=== PATIENT | male | born 1960 | race Caucasian/White ===

== ENCOUNTER → 2016-03-16 | Outpatient (CLI) | payer MEDICARE ==
[~2016-03-16] MED LIST: ASPIRIN 81MG TA81 MG PO; ASPIRIN ADULT L81 M2 PO; AUGMENTIN1 TA2 PO; DICLOFENAC 50MG50 MG PO; FUROSEMIDE 20MG20 MG PO; GABAPENTIN300 MG PO; GLYBURIDE2.5 MG PO; GLYXAMBI1 TAB PO; HUMALOG MIX 75/10 ML SC; HUMULIN R100 UNITS/ SC; KEFLEX 500MG.500 MG PO; LANTUS INS100 UNITS/ SC; LISINOPRIL 5MG T5 MG NG; MELOXICAM7.5 MG PO; METFORMIN1000 MG PO; METFORMIN500 MG PO; NOVOLIN 70/30 710 ML SC; NOVOLOG MI100 UNITS/ SC; PRAVACHOL 40MG40 MG PO; PRAVASTATIN 20M20 MG PO; TRESIBA FL100 UNIT/1 SQ; VITAMIN D1000 IU PO; VITAMIN D50000 IU PO
--- NOTE | 2016-03-16 19:42 | RADIOLOGY REPORT PS360 ---
FOOT-RT-3 VIEWS HISTORY: CELLULITIS OF RT FOOT ORDERING PHYSICIAN: ELLEN PATEL APRN PATIENT AGE: 56 years FINDINGS: No fracture or dislocation. No lytic or blastic change. There is normal mineralization.. There are small cortical defects involving the medial aspect of the first metatarsophalangeal joint. While this could be related to subarticular cystic change, one cannot exclude the possibility of gout. This was not present on 06/23/2010. No other significant anomalies evident. IMPRESSION: Small punched out cortical defects on the medial aspect of the first metatarsophalangeal joint which could be due to prior gout. Please correlate clinically. Otherwise negative
== END ==
LOC: RAD 11:02
DX: L03.115 Cellulitis of right lower limb (principal)

== ENCOUNTER → 2016-03-18 | Outpatient (CLI) | payer MEDICARE ==
--- NOTE | 2016-03-18 09:51 | RADIOLOGY REPORT PS360 ---
ORBIT HISTORY: History of metallic foreign body in the eyes. 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 IMPRESSION: No radio opaque orbital foreign body identified
--- NOTE | 2016-03-22 09:58 | RADIOLOGY REPORT PS360 ---
MRI-LOW EXT OTH THN JNT W/O-RT HISTORY: Pain and swelling in the foot and great toe CELLULITIS OF RIGHT FOOT ORDERING PHYSICIAN: ELLEN PATEL APRN PATIENT AGE: 56 years COMPARISON: Radiograph 2 03/16/2016 TECHNIQUE: Standard multiplanar multiecho sequences are performed without contrast. FINDINGS: There is no convincing evidence of bone marrow edema that would indicate acute osteomyelitis. No obvious fracture or bony erosive change. Minor osteoarthritic changes involve the first metatarsophalangeal junction. There is mild diffuse subcutaneous edema along the dorsal aspect of the foot which may be related to cellulitis. Increased T2 signal present along the nailbed involving the great toe and could represent fluid or blood. IMPRESSION: 1. No convincing evidence of osteomyelitis. 2. Cellulitis along the dorsal aspect of the foot. 3. Increased T2 signal involving the nailbed of the great toe consistent with fluid and/or blood
== END ==
LOC: RAD 09:16
DX: L03.115 Cellulitis of right lower limb (principal); H05.53 Retained (old) foreign body following penetrating wound of bilateral orbits

== ENCOUNTER → 2016-04-20 | Outpatient (CLI) | payer MEDICARE ==
[2016-04-20 08:47] LABS: BUN 45 mg/dL (7-18); GFR (ESTIMATED) 28 ML/MIN (>60)
== END ==
LOC: LAB 07:21
PROVIDERS: Family Medicine
DX: E03.9 Hypothyroidism, unspecified (principal); E11.9 Type 2 diabetes mellitus without complications; I10 Essential (primary) hypertension

== ENCOUNTER 2016-05-21 19:18 | Emergency (ER) | payer MEDICARE ==
[~2016-05-21] VITALS: Ht 180.3 cm; Wt 104.3 kg
[~2016-05-21 19:18] MED LIST changes: -GLYXAMBI1 TAB PO; -TRESIBA FL100 UNIT/1 SQ
[2016-05-21] MEDS ORDERED: TRESIBA FL100 UNIT/1 SQ (19:57)
--- NOTE | 2016-05-21 20:05 | Urgent Treatment Center Report ---
History of Present Issue Date/Time Seen by Provider 05/21/162000 Visit Reason Pt arrived:Walked Presenting Problem:PT STATES TRIPPING ON TREE ROOT MONDAY AND FALLING. STATES INJURY TO LEFT RIBS FROM FALL Location if Accident:Home Onset of symptoms date/time:05/16/16/ or onset unknown for:MEDICAL HX UNKNOWN Have you (or family members/close friends) recently traveled outside the [place]? N If Yes, where/when: Have you had exposure to infectious disease within the past month? TB? Other? Specify: Source patient Exam Limitations no limitations Comment 56-year-old male presents to [facility] with complaints of LEFT side pain. She states on Monday tripped over a tree root and fell flat of his face. He woke up on Monday with the pain in the LEFT rib area. Patient states he has noted his abdomen feels bloated patient states area on rib is tender to palpate. ALLERGIES Coded Allergies: loratadine (From CLARITIN-D) (05/21/16) pseudoephedrine (From CLARITIN-D) (05/21/16) Home Medications Reported Medications METFORMIN HCL (Metformin) 1,000 MG PO BID PRAVASTATIN SODIUM (Pravastatin Sodium) 40 MG PO QHS Gabapentin (Gabapentin 300MG) 800 MG PO TID Furosemide (Furosemide) 40 MG PO DAILY LISINOPRIL (Lisinopril) 5 MG NG DAILY Aspirin 81 MG PO BID Insulin Degludec (Tresiba Flextouch U-100) 60 UNIT SQ NIGHTLY ERGOCALCIFEROL (VITAMIN D2) (Vitamin D2) 50,000 IUNITS PO TWICEWEEKLY #8 History Medical History General CAD? No Angina: Yes [place]: No Hypertension? Yes Hyperlipidemia? Yes CHF? No DVT? No PE? No COPD? No Asthma? No Anemia? No GERD? No Gastric ulcers? No GI Bleed? No Hernia? Yes Thyroid Problems? No Hypothyroidism? No CVA? No Seizures? No Diabetes? Yes Insulin Dependent: Yes Insulin Pump: No Home FSBS? No Renal Insuffiency? No UTI? No Stones? No GB Disease: No Nephritic Syndrome? No Asplenia? No Hepatitis? No Sickle Cell Disease? No Arthritis? No Migraines? No Cataracts? No Glaucoma? No MRSA? No HIV? No TB? No Anxiety? No Depression? No Cancer? No Immunization HX DT/Tetanus 5-10 Years Ago Flu Refused Pneumonia Refuses Surgical Hx Previous Surgery?Y Hernia Repair LASER EYE Family History Family HX Diabetes Yes CAD Yes Hypertension Yes Hyperlipidemia No Cancer No TB No Social History Smoking Hx Smoker: Never Smoker Tobacco: No Alcohol Alcohol: No Review of Systems All Other Systems Reviewed and Negative Respiratory see HPI, denies orthopnea, denies shortness of breath Cardiovascular denies chest pain Gastrointestinal see HPI Genitourinary denies: no symptoms reported. Physical Exam Vital Signs Vital Signs Date Time Temp Pulse Resp B/P Pulse O2 O2 Flow FiO2 Ox Delivery Rate 05/21 1928 99.3 90 20 185/80 100 - WBC >12,000 or <4,000 or 10% bands? 2 or more SIRS Criteria Met? B/P:185/80 MAP:115 Creatinine >2.0? UA output<0.5ml/kg/hr for 2 hrs? Platelet count >100,000? Lactate >2.0mmol/1? INR >1.2 or PTT > than 60 sec? Evidence of Organ Dysfunction? Provider documented clinical suspician of infection? Sepsis Criteria Count: 2 Sepsis Risk: General Appearance normal appearance, no apparent distress Eye Exam - bilateral eye normal exam, bilateral eye PERRL, bilateral eye EOMI Respiratory Status Yes: trachea midline, chest symmetrical, non tender chest. No: respiratory distress. Lung Sounds bilateral: normal breath sounds, lungs clear. Cardiovascular normal exam, regular rate/rhythm, no peripheral edema Peripheral Pulses Pulses normal Yes Gastrointestinal normal bowel sounds, soft, tenderness (luq) Neurologic alert, normal exam, oriented x 3 Medical Decision Making LABS/Meds/Orders Pt receiving controlled substance in ED? No Results/Orders Laboratory Tests 05/21/162008: Ammonia Cancelled 05/21/16 2009: Sodium 139, Potassium 5.6 H, Chloride 103, Carbon Dioxide 26, BUN 48 H, Creatinine 2.8 H, Estimated Creat Clear 43 L, Estimated GFR (MDRD) 23, Glucose 287 H, Calcium 9.1, Total Bilirubin 0.3, AST 14 L, ALT 24, Alkaline Phosphatase 115, Total Protein 8.0, Albumin 3.4, Globulin 4.6 H, Albumin/ Globulin Ratio 0.7 L, Amylase 65, Lipase 563 H, WBC 8.1, RBC 3.83 L, Hgb 10.4 L, Hct 32.6 L, MCV 85.0, RDW 13.3, Plt Count 203, MPV 7.8, Gran % 72.9, Gran # 5.9, Lymphocytes % 19.4, Monocytes % 4.3, Eosinophils % 3.2, Basophils % 0.3, Lymphocytes # 1.6, Monocytes # 0.4, Eosinophils # 0.3, Basophils # 0.0, PUBS MCHC 31.8, MCH 27.1 Orders Procedure Date/time Status LIPASE 05/22 1999 Complete CBC WITH AUTO DIFF 05/22 1999 Complete CHEM 12 PROFILE 05/22 1999 Complete AMYLASE 05/22 1999 Complete [id number] VIEWS 05/21 1933 Active XRAY/CT/US XRAY/CT/US XRAY chest XR interpretation by reviewed by me (michael) Xray Results no fracture seen Departure Departure Time of Disposition 2054 Disposition Still a Patient Clinical Impression Primary Impression: Ascites Qualifiers: Ascites type: other type Qualified Code: R18.8 - Other ascites Condition STABLE Referrals Shaw AGUILERA,Ryan (Family) Patient Instructions Ascites Additional Instructions After labs discuss patient with Dr. rodriguez transferred patient to the ER for further evaluation at 2058
[2016-05-21 20:26] LABS: HEMOGLOBIN 10.4 g/dL (14.1-18.0); LYMPH # 1.6 K/mm3 (0.7-4.5); LYMPH % 19.4 % (10-50)
[2016-05-21] MEDS ORDERED: GLYXAMBI1 TAB PO (21:09)
--- NOTE | 2016-05-21 22:01 | Emergency Room Report ---
History of Present Illness Time Seen by [id number] Presenting Problem in Triage Pt arrived:Walked Presenting Problem:PT RPTS HE WAS SENT TO THE ER FROM [facility]. PT WENT TO [facility] C/O LEFT SIDED RIB PAIN FROM A FALL ON MONDAY. PT DENIES LOC FROM FALL. PT RPTS HE WAS WALKING AND TRIPPED OVER A STUMP AND FELL. PT RPTS [facility] TOLD HIM THAT HE MIGHT BE IN KIDNEY OR LIVER FAILURE AND NEEDS FURTHER TESTING. Onset of symptoms date/time:05/16/16/ or onset unknown for:MEDICAL HX UNKNOWN Treatment Prior to Arrival: DAILY [facility] [employer] [employer] Provided by:SELF Sepsis Risk Assessment: Temp: 98.8 B/P: 159/96 MAP: 117 Pulse: 88 Resp: 18 Recent fever? N Clinical Suspician of Infection? N Mental Status: 1 - Regular (Normal Baseline) Sepsis Risk:Low Sepsis Risk Have you (or family members/close friends) recently traveled outside the [place]? N If Yes, where/when: Have you had exposure to infectious disease within the past month? N TB? Other? Specify: Comment The patient states that on Monday 6 days ago he fell forward landing on his face. He says that on Monday he started developing some soreness in his LEFT anterior ribs and thought he might have broken a rib. He says that today his abdomen feels swollen and distended and therefore he came to the emergency room. He denies vomiting. No trouble breathing except pain in his LEFT ribs when he takes a breath. He denies other injuries. He was seen in urgent treatment center by Jayesh Hanna, and had a laboratory workup. It was discovered that his creatinine was above baseline and he hasn't elevated lipase. She felt that he might have ascites as well. She therefore sends him to the emergency department for further evaluation. He is a nondrinker. No history of pancreatitis. ALLERGIES Coded Allergies: loratadine (From CLARITIN-D) (05/21/16) pseudoephedrine (From CLARITIN-D) (05/21/16) Home Medications Reported Medications METFORMIN HCL (Metformin) 1,000 MG PO BID PRAVASTATIN SODIUM (Pravastatin Sodium) 40 MG PO QHS Gabapentin (Gabapentin 300MG) 800 MG PO TID Furosemide (Furosemide) 40 MG PO DAILY LISINOPRIL (Lisinopril) 5 MG NG DAILY Aspirin 81 MG PO BID Empagliflozin/Linagliptin (Glyxambi 25 MG-5 MG Tablet) 1 TAB PO DAILY Insulin Degludec (Tresiba Flextouch U-100) 60 UNIT SQ NIGHTLY ERGOCALCIFEROL (VITAMIN D2) (Vitamin D2) 50,000 IUNITS PO TWICEWEEKLY #8 History Medical History General CAD? No Angina: Yes [place]: No Hypertension? Yes Hyperlipidemia? Yes CHF? No DVT? Yes PE? No COPD? No Asthma? No Anemia? No GERD? No Gastric ulcers? No GI Bleed? No Hernia? Yes Thyroid Problems? Yes Hypothyroidism? Yes CVA? No Seizures? No Diabetes? Yes Insulin Dependent: Yes Insulin Pump: No Home FSBS? Yes Renal Insuffiency? No End Stage Renal Disease? No UTI? No Stones? No BPH? No GB Disease: No Nephritic Syndrome? No Asplenia? No Hepatitis? No Sickle Cell Disease? No Arthritis? No Migraines? No Cataracts? No Glaucoma? No MRSA? No HIV? No TB? No Anxiety? No Depression? No Cancer? No More? No Immunization Hx DT/Tetanus 5-10 Years Ago Flu Refused Pneumonia Refuses Surgical Hx Previous Surgery?Y Hernia Repair LASER EYE Family History Family Hx Diabetes Yes CAD Yes Hypertension Yes Hyperlipidemia No Cancer No TB No Social History Smoking Hx Smoker: Never Smoker Tobacco: No Alcohol Alcohol: No Review of Systems All Other Systems Reviewed and Negative Constitutional denies fever Respiratory see HPI, denies shortness of breath Cardiovascular chest pain (LEFT ribs) Gastrointestinal see HPI Physical Exam Vital Signs Vital Signs Date Time Temp Pulse Resp B/P Pulse O2 O2 Flow FiO2 Ox Delivery Rate 05/21 2242 98.8 87 18 118/62 97 05/21 2100 98.8 88 18 159/96 99 05/21 192 99.3 90 20 185/80 100 General Appearance normal appearance, WD/WN Eye Exam - bilateral eye normal exam, bilateral eye PERRL, bilateral eye EOMI Ear, Nose, Throat hearing grossly normal, normal ENT inspection Neck normal inspection, non-tender, supple, full range of motion Respiratory Status Yes: trachea midline, chest symmetrical, tender on palpation (reproducible LEFT anterior rib). No: respiratory distress. Lung Sounds bilateral: normal breath sounds, lungs clear. 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 No Comment Patient declines pain medication Results/Orders Laboratory Tests 05/21/162008: Ammonia Cancelled 05/21/16 2009: Sodium 139, Potassium 5.6 H, Chloride 103, Carbon Dioxide 26, BUN 48 H, Creatinine 2.8 H, Estimated Creat Clear 43 L, Estimated GFR (MDRD) 23, Glucose 287 H, Calcium 9.1, Total Bilirubin 0.3, AST 14 L, ALT 24, Alkaline Phosphatase 115, Total Protein 8.0, Albumin 3.4, Globulin 4.6 H, Albumin/ Globulin Ratio 0.7 L, Amylase 65, Lipase 563 H, WBC 8.1, RBC 3.83 L, Hgb 10.4 L, Hct 32.6 L, MCV 85.0, RDW 13.3, Plt Count 203, MPV 7.8, Gran % 72.9, Gran # 5.9, Lymphocytes % 19.4, Monocytes % 4.3, Eosinophils % 3.2, Basophils % 0.3, Lymphocytes # 1.6, Monocytes # 0.4, Eosinophils # 0.3, Basophils # 0.0, PUBS MCHC 31.8, MCH 27.1 Current Medication Orders Sig/Loretta Start time Last Medication Dose Route Stop Time Status Admin Sodium Chloride 10 ML PRN PRN 05/21 2129 AC IV 05/22 2118 Orders Procedure Date/time Status DIET-NOTHING BY MOUTH 05/22 B Active IV SALINE LOCK 05/[address] ABD & PELVIS W/O CONTRAST 05/[address] SCAN REQ 05/22 2111 Complete LIPASE 05/22 1999 Complete CBC WITH AUTO DIFF 05/22 1999 Complete CHEM 12 PROFILE 05/22 1999 Complete AMYLASE 05/22 1999 Complete [id number] VIEWS 05/21 1933 Active XRAY/CT/US XRAY/CT/US CT abdomen, pelvis Comment CT scan interpreted by ad radiologist. Faxed report received and reviewed: Pancreas unremarkable. Spleen unremarkable. 1.13 cm RIGHT lower lobe pulmonary nodule. Follow-up recommended. Patient was made aware. Progress - After labs discuss patient with Dr. rodriguez transferred patient to the ER for further evaluation 10:40 PM: Case discussed with Dr. Carias for Dr. Squires. Both he and I feel the patient can be discharged for follow-up with Dr. Squires as an outpatient. His lipase is elevated, but amylase is normal and CT shows no evidence of pancreatitis. He has no abdominal pain or tenderness. This is all in his ribs. He has chronic renal insufficiency, his creatinine is above baseline, but not terribly so. Advised of need for follow-up with this with his primary care doctor. Also needs to follow up for pulmonary nodule. Departure Departure Disposition DC Home or Self Care(routine) Clinical Impression Primary Impression: Rib contusion Qualifiers: Encounter type: initial encounter Laterality: left Qualified Code: S20.212A - Contusion of left front wall of thorax, initial encounter Secondary Impressions: Chronic renal insufficiency Qualifiers: Chronic kidney disease stage: unspecified stage Qualified Code: N18.9 - Chronic kidney disease, unspecified Elevated lipase Pulmonary nodule Condition STABLE Referrals Ryan Squires MD (Family) Patient Instructions DI for Pulmonary Nodule, DI for Rib Contusion Additional Instructions Follow-up with Dr. Squires next week. Dr. Squires will need to perform further evaluation of your pulmonary nodule and should follow-up your other lab test abnormalities. Tylenol for pain. ED Critical Care Critical Care No at [id number]
--- NOTE | 2016-05-21 22:01 | Emergency Room Report ---
History of Present Illness Time Seen by [id number] Presenting Problem in Triage Pt arrived:Walked Presenting Problem:PT RPTS HE WAS SENT TO THE ER FROM [facility]. PT WENT TO [facility] C/O LEFT SIDED RIB PAIN FROM A FALL ON MONDAY. PT DENIES LOC FROM FALL. PT RPTS HE WAS WALKING AND TRIPPED OVER A STUMP AND FELL. PT RPTS [facility] TOLD HIM THAT HE MIGHT BE IN KIDNEY OR LIVER FAILURE AND NEEDS FURTHER TESTING. Onset of symptoms date/time:05/16/16/ or onset unknown for:MEDICAL HX UNKNOWN Treatment Prior to Arrival: DAILY [facility] [employer] Provided by:SELF Sepsis Risk Assessment: Temp: 98.8 B/P: 159/96 MAP: 117 Pulse: 88 Resp: 18 Recent fever? N Clinical Suspician of Infection? N Mental Status: 1 - Regular (Normal Baseline) Sepsis Risk:Low Sepsis Risk Have you (or family members/close friends) recently traveled outside the [place]? N If Yes, where/when: Have you had exposure to infectious disease within the past month? N TB? Other? Specify: Comment The patient states that on Monday 6 days ago he fell forward landing on his face. He says that on Monday he started developing some soreness in his LEFT anterior ribs and thought he might have broken a rib. He says that today his abdomen feels swollen and distended and therefore he came to the emergency room. He denies vomiting. No trouble breathing except pain in his LEFT ribs when he takes a breath. He denies other injuries. He was seen in urgent treatment center by Jayesh Hanna, and had a laboratory workup. It was discovered that his creatinine was above baseline and he hasn't elevated lipase. She felt that he might have ascites as well. She therefore sends him to the emergency department for further evaluation. He is a nondrinker. No history of pancreatitis. ALLERGIES Coded Allergies: loratadine (From CLARITIN-D) (05/21/16) pseudoephedrine (From CLARITIN-D) (05/21/16) Home Medications Reported Medications METFORMIN HCL (Metformin) 1,000 MG PO BID PRAVASTATIN SODIUM (Pravastatin Sodium) 40 MG PO QHS Gabapentin (Gabapentin 300MG) 800 MG PO TID Furosemide (Furosemide) 40 MG PO DAILY LISINOPRIL (Lisinopril) 5 MG NG DAILY Aspirin 81 MG PO BID Empagliflozin/Linagliptin (Glyxambi 25 MG-5 MG Tablet) 1 TAB PO DAILY Insulin Degludec (Tresiba Flextouch U-100) 60 UNIT SQ NIGHTLY ERGOCALCIFEROL (VITAMIN D2) (Vitamin D2) 50,000 IUNITS PO TWICEWEEKLY #8 History Medical History General CAD? No Angina: Yes [place]: No Hypertension? Yes Hyperlipidemia? Yes CHF? No DVT? Yes PE? No COPD? No Asthma? No Anemia? No GERD? No Gastric ulcers? No GI Bleed? No Hernia? Yes Thyroid Problems? Yes Hypothyroidism? Yes CVA? No Seizures? No Diabetes? Yes Insulin Dependent: Yes Insulin Pump: No Home FSBS? Yes Renal Insuffiency? No End Stage Renal Disease? No UTI? No Stones? No BPH? No GB Disease: No Nephritic Syndrome? No Asplenia? No Hepatitis? No Sickle Cell Disease? No Arthritis? No Migraines? No Cataracts? No Glaucoma? No MRSA? No HIV? No TB? No Anxiety? No Depression? No Cancer? No More? No Immunization Hx DT/Tetanus 5-10 Years Ago Flu Refused Pneumonia Refuses Surgical Hx Previous Surgery?Y Hernia Repair LASER EYE Family History Family Hx Diabetes Yes CAD Yes Hypertension Yes Hyperlipidemia No Cancer No TB No Social History Smoking Hx Smoker: Never Smoker Tobacco: No Alcohol Alcohol: No Review of Systems All Other Systems Reviewed and Negative Constitutional denies fever Respiratory see HPI, denies shortness of breath Cardiovascular chest pain (LEFT ribs) Gastrointestinal see HPI Physical Exam Vital Signs Vital Signs Date Time Temp Pulse Resp B/P Pulse O2 O2 Flow FiO2 Ox Delivery Rate 05/21 2242 98.8 87 18 118/62 97 05/21 2100 98.8 88 18 159/96 99 05/21 192 99.3 90 20 185/80 100 General Appearance normal appearance, WD/WN Eye Exam - bilateral eye normal exam, bilateral eye PERRL, bilateral eye EOMI Ear, Nose, Throat hearing grossly normal, normal ENT inspection Neck normal inspection, non-tender, supple, full range of motion Respiratory Status Yes: trachea midline, chest symmetrical, tender on palpation (reproducible LEFT anterior rib). No: respiratory distress. Lung Sounds bilateral: normal breath sounds, lungs clear. 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 No Comment Patient declines pain medication Results/Orders Laboratory Tests 05/21/162008: Ammonia Cancelled 05/21/16 2009: Sodium 139, Potassium 5.6 H, Chloride 103, Carbon Dioxide 26, BUN 48 H, Creatinine 2.8 H, Estimated Creat Clear 43 L, Estimated GFR (MDRD) 23, Glucose 287 H, Calcium 9.1, Total Bilirubin 0.3, AST 14 L, ALT 24, Alkaline Phosphatase 115, Total Protein 8.0, Albumin 3.4, Globulin 4.6 H, Albumin/ Globulin Ratio 0.7 L, Amylase 65, Lipase 563 H, WBC 8.1, RBC 3.83 L, Hgb 10.4 L, Hct 32.6 L, MCV 85.0, RDW 13.3, Plt Count 203, MPV 7.8, Gran % 72.9, Gran # 5.9, Lymphocytes % 19.4, Monocytes % 4.3, Eosinophils % 3.2, Basophils % 0.3, Lymphocytes # 1.6, Monocytes # 0.4, Eosinophils # 0.3, Basophils # 0.0, PUBS MCHC 31.8, MCH 27.1 Current Medication Orders Sig/Loretta Start time Last Medication Dose Route Stop Time Status Admin Sodium Chloride 10 ML PRN PRN 05/21 2129 AC IV 05/22 2118 Orders Procedure Date/time Status DIET-NOTHING BY MOUTH 05/22 B Active IV SALINE LOCK 05/[address] ABD & PELVIS W/O CONTRAST 05/[address] SCAN REQ 05/22 2111 Complete LIPASE 05/22 1999 Complete CBC WITH AUTO DIFF 05/22 1999 Complete CHEM 12 PROFILE 05/22 1999 Complete AMYLASE 05/22 1999 Complete [id number] VIEWS 05/21 1933 Active XRAY/CT/US XRAY/CT/US CT abdomen, pelvis Comment CT scan interpreted by ad radiologist. Faxed report received and reviewed: Pancreas unremarkable. Spleen unremarkable. 1.13 cm RIGHT lower lobe pulmonary nodule. Follow-up recommended. Patient was made aware. Progress - After labs discuss patient with Dr. rodriguez transferred patient to the ER for further evaluation 10:40 PM: Case discussed with Dr. Carias for Dr. Squires. Both he and I feel the patient can be discharged for follow-up with Dr. Squires as an outpatient. His lipase is elevated, but amylase is normal and CT shows no evidence of pancreatitis. He has no abdominal pain or tenderness. This is all in his ribs. He has chronic renal insufficiency, his creatinine is above baseline, but not terribly so. Advised of need for follow-up with this with his primary care doctor. Also needs to follow up for pulmonary nodule. Departure Departure Disposition DC Home or Self Care(routine) Clinical Impression Primary Impression: Rib contusion Qualifiers: Encounter type: initial encounter Laterality: left Qualified Code: S20.212A - Contusion of left front wall of thorax, initial encounter Secondary Impressions: Chronic renal insufficiency Qualifiers: Chronic kidney disease stage: unspecified stage Qualified Code: N18.9 - Chronic kidney disease, unspecified Elevated lipase Pulmonary nodule Condition STABLE Referrals Ryan Squires MD (Family) Patient Instructions DI for Pulmonary Nodule, DI for Rib Contusion Additional Instructions Follow-up with Dr. Squires next week. Dr. Squires will need to perform further evaluation of your pulmonary nodule and should follow-up your other lab test abnormalities. Tylenol for pain. ED Critical Care Critical Care No at [id number]
[2016-05-21 22:45] VITALS: BP 118/62
--- NOTE | 2016-05-22 14:14 | RADIOLOGY REPORT PS360 ---
CT ABD PELVIS W/O CONTRAST COMPARISON: PA chest and left RIBS same date HISTORY: Left-sided abdominal pain TECHNIQUE: Multiaxial scans obtained from hemidiaphragms the pelvic floor and were performed without IV or oral contrast. Sagittal and coronal reformatted images were evaluated as well. FINDINGS: Scans through the lower chest show small 1.1 cm noncalcified subpleural nodule posterior basal segment right lower lobe. Suggest a follow-up CT scan the chest pressure 6 months for continuing evaluation depending on whether the patient is high or low risk for lung cancer. There are multiple calcified bilateral hilar and subcarinal nodes. There is a small hiatal hernia. The liver spleen stomach pancreas and gallbladder appear normal. The adrenal glands are normal. The kidneys are normal in size and there are no calculi and is no obstructive uropathy of either kidney. The small bowel is normal. The appendix is normal. There is moderate stool in ascending and proximal descending colon. The urinary bladder is well distended with urine, the prostate is normal. There are dilated inguinal rings bilaterally containing fat only. IMPRESSION: 1.1 cm noncalcified subpleural pulmonary nodule suggest follow-up CT scan chest impressing 6 months for continuing evaluation though if there is a strong smoking history follow-up CT scan in 3 months is advisable. I agree the [facility] report.
--- NOTE | 2016-05-22 14:14 | RADIOLOGY REPORT PS360 ---
[id number] VIEWS COMPARISON: PA and lateral chest 11/25/2013 HISTORY: Left chest wall pain after fall TECHNIQUE: PA chest and oblique views left RIBS FINDINGS: This is a somewhat poor inspiration and there is minimal discoid atelectasis right perihilar region. Again noted are multiple moderate-sized calcified hilar nodes bilaterally there are calcified granulomata in both lung cortes. All the left ribs 1 through 12 are visualized and appear intact with no fracture seen. There is no pneumothorax. IMPRESSION: Old granulomatous disease, no left rib fracture seen.
== END 2016-05-21 22:58 | disposition home or self-care (01) ==
LOC: UTC 19:18 → ER 19:22
PROVIDERS: Nurse Practitioner Family
DX: S20.212A Contusion of left front wall of thorax, initial encounter (principal); N18.9 Chronic kidney disease, unspecified